=== PATIENT | male | born 1935 | race Caucasian/White ===

== ENCOUNTER → 2017-02-09 | Outpatient (CLI) | payer OTHER ==
[~2017-02-09] MED LIST: ASPI-496 PO; CAND32TA2; CARV3.122 PO; CARV6.252 PO; LISI-167 PO; LISI-170 PO; REGADENOSON 0.4 MG/5 ML SYRINGE ONE; SIMV40TA3 PO; amlodipine
== END | disposition home or self-care (01) ==
LOC: CFH 12:01
PROVIDERS: ATTEND Nurse Practitioner Family
DX: I25.10 Atherosclerotic heart disease of native coronary artery without angina pectoris (principal)
CPT/HCPCS: 78452; 93017; A9502; J2785

== ENCOUNTER 2017-02-10 06:37 | Inpatient (IN) | payer OTHER, MEDICARE ==
[~2017-02-10] VITALS: Ht 180.3 cm; Wt 102.2 kg
[~2017-02-10 06:37] MED LIST changes: -ASPI-496 PO; +BACITRACIN 50,000 UNIT ONE; +BUPIVACAINE/PF 0.25% ONE; +BUPIVACAINE/PF-EPI 0.5% 1:200K ONE; -CARV3.122 PO; -CARV6.252 PO; -LISI-167 PO; -LISI-170 PO; -REGADENOSON 0.4 MG/5 ML SYRINGE ONE; +THROMBIN 5,000 UNIT VIAL TP ONE
[2017-02-10 15:34] VITALS: BP 138/77
[2017-02-10] MEDS ORDERED: LACTATED RINGERS 1,000 ML IV SCH (15:37)
[2017-02-10] MEDS ORDERED: ASPI-496 PO (16:26)
[2017-02-10] MEDS ORDERED: LISI-167 PO (16:26)
[2017-02-10] MEDS ORDERED: LISI-170 PO (16:26)
[2017-02-10] MEDS ORDERED: CARV3.122 PO (16:26)
[2017-02-10] MEDS ORDERED: CARV6.252 PO (16:26)
[2017-02-10] MEDS ORDERED: FENTANYL PF 250 MCG/5ML ONE (16:44)
[2017-02-10] MEDS ORDERED: ONDANSETRON 2MG/ML, 2ML ONE (17:02)
[2017-02-10] MEDS ORDERED: CEFAZOLIN 1,000 MG ONE (17:02)
[2017-02-10] MEDS ORDERED: PROPOFOL 10 MG/ML, 20ML ONE (17:02)
[2017-02-10] MEDS ORDERED: ROCURONIUM 10 MG/ML ONE (17:02)
[2017-02-10] MEDS ORDERED: PROPOFOL 10 MG/ML, 50ML ONE (17:02)
[2017-02-10] MEDS ORDERED: SUCCINYLCHOLINE 20 MG/ML, 10ML ONE (17:02)
[2017-02-10] MEDS ORDERED: ONDANSETRON 2MG/ML, 2ML IVPush PRN ×2 (18:00→19:00)
[2017-02-10] MEDS ORDERED: FENTANYL PF 100 MCG/2ML IV PRN (18:00)
[2017-02-10] MEDS ORDERED: METOPROLOL 1 MG/ML, 5ML IV PRN (18:00)
[2017-02-10] MEDS ORDERED: OXYcodone 5 MG/5 ML ORAL.SOL UDC PO PRN (18:00)
[2017-02-10] MEDS ORDERED: LABETALOL 5MG/ML, 20ML IV PRN (18:00)
[2017-02-10] MEDS ORDERED: hydrALAzine 20 MG/ML, 1ML IV PRN (18:00)
[2017-02-10] MEDS ORDERED: HYDROmorphone 1 MG/ML, 1ML IV PRN (18:00)
[2017-02-10] MEDS ORDERED: FENTANYL PF 100 MCG/2ML ONE ×2 (18:07→18:43)
[2017-02-10] MEDS ORDERED: ACETAMINOPHEN 650 MG/20.3 ML UDC ONE (18:43)
[2017-02-10] MEDS ORDERED: OXYcodone 5 MG/5 ML ORAL.SOL UDC ONE (18:43)
[2017-02-10] MEDS ORDERED: morphine SULFATE 10 MG/ML, 1ML IVPush PRN (19:00)
[2017-02-10] MEDS ORDERED: HYDROcodone/APAP 10/325 MG TABLET PO PRN (19:00)
[2017-02-10] MEDS ORDERED: ACETAMINOPHEN 325 MG TABLET PO PRN (19:00)
[2017-02-10] MEDS ORDERED: PROMETHAZINE 25 MG/ML, 1ML IM PRN (19:00)
[2017-02-10] MEDS ORDERED: PHARMACY MAY ADJ FOR RENAL FX MC PRN (19:00)
[2017-02-10] MEDS ORDERED: CYCLOBENZAPRINE 10 MG TABLET PO PRN (19:00)
[2017-02-10] MEDS ORDERED: HYDROcodone/APAP 5/325 TABLET PO PRN (19:00)
[2017-02-10] MEDS ORDERED: BISACODYL 10 MG SUPP PR PRN (19:00)
[2017-02-10] MEDS ORDERED: DIPHENHYDRAMINE 50 MG/ML, 1ML IVPush PRN (19:00)
[2017-02-10] MEDS: LISINOPRIL 20 MG TABLET PO SCH (22:14)
[2017-02-10] MEDS: D5%-0.9% NACL+KCL 20MEQ 1,000 ML IV SCH (22:14)
[2017-02-10] MEDS: CARVEDILOL 6.25 MG TABLET PO SCH (22:15)
[2017-02-10] MEDS: SODIUM CHLORIDE FLUSH 10ML SYR IVF SCH (22:16)
[2017-02-10] MEDS: OXYcodone/APAP 5/325MG TABLET PO PRN (22:56)
[2017-02-11 00:27] VITALS: BP 123/65
[2017-02-11] MEDS: CEFAZOLIN PMX 1GM/50ML 50 ML IVPB SCH ×2 (00:35→08:37)
[2017-02-11 03:40] VITALS: BP 139/72
[2017-02-11] MEDS: OXYcodone/APAP 5/325MG TABLET PO PRN ×4 (03:51→19:59)
[2017-02-11 07:56] VITALS: BP 123/60
[2017-02-11] MEDS: CARVEDILOL 3.125 MG TABLET PO SCH (08:37)
[2017-02-11] MEDS: SODIUM CHLORIDE FLUSH 10ML SYR IVF SCH ×2 (08:38→19:59)
[2017-02-11] MEDS: LISINOPRIL 10 MG TABLET PO SCH (08:38)
[2017-02-11] MEDS: D5%-0.9% NACL+KCL 20MEQ 1,000 ML IV SCH ×2 (09:20→22:40)
[2017-02-11] MEDS: SENNA/DOCUSATE TABLET PO PRN (11:08)
[2017-02-11 13:34] VITALS: BP 109/54
[2017-02-11 18:57] VITALS: BP 104/65
[2017-02-11] MEDS: CARVEDILOL 6.25 MG TABLET PO SCH (19:59)
[2017-02-11] MEDS: LISINOPRIL 20 MG TABLET PO SCH (19:59)
[2017-02-12 02:14] VITALS: BP 133/69
[2017-02-12 07:20] VITALS: BP 121/71
[2017-02-12] MEDS: CARVEDILOL 3.125 MG TABLET PO SCH (07:58)
[2017-02-12] MEDS: OXYcodone/APAP 5/325MG TABLET PO PRN ×2 (07:59→15:55)
[2017-02-12] MEDS: SODIUM CHLORIDE FLUSH 10ML SYR IVF SCH ×2 (07:59→20:17)
[2017-02-12 08:00] VITALS: BP 117/60
[2017-02-12] MEDS: LISINOPRIL 10 MG TABLET PO SCH (09:00)
[2017-02-12] MEDS: TAMSULOSIN 0.4 MG CAP.ER.24H PO SCH (10:42)
[2017-02-12] MEDS: SENNA/DOCUSATE TABLET PO PRN (10:42)
[2017-02-12 10:54] VITALS: BP 96/42
[2017-02-12] MEDS: D5%-0.9% NACL+KCL 20MEQ 1,000 ML IV SCH (12:00)
[2017-02-12 12:51] VITALS: BP 106/70
[2017-02-12 19:47] VITALS: BP 105/55
[2017-02-12] MEDS: CARVEDILOL 6.25 MG TABLET PO SCH (20:18)
[2017-02-12] MEDS: LISINOPRIL 20 MG TABLET PO SCH (20:18)
[2017-02-13] MEDS: D5%-0.9% NACL+KCL 20MEQ 1,000 ML IV SCH ×2 (01:20→14:40)
[2017-02-13 02:57] VITALS: BP 113/59
[2017-02-13 07:04] VITALS: BP 102/56
[2017-02-13] MEDS: TAMSULOSIN 0.4 MG CAP.ER.24H PO SCH (08:54)
[2017-02-13] MEDS: OXYcodone/APAP 5/325MG TABLET PO PRN (08:56)
[2017-02-13] MEDS: LISINOPRIL 10 MG TABLET PO SCH (09:00)
[2017-02-13] MEDS: CARVEDILOL 3.125 MG TABLET PO SCH (09:00)
[2017-02-13] MEDS: SODIUM CHLORIDE FLUSH 10ML SYR IVF SCH ×2 (09:00→20:41)
[2017-02-13 12:54] VITALS: BP 96/61
[2017-02-13 17:06] VITALS: BP 137/55
[2017-02-13 19:02] VITALS: BP 113/61
[2017-02-13] MEDS: CARVEDILOL 6.25 MG TABLET PO SCH ×2 (20:41→20:44)
[2017-02-13] MEDS: LISINOPRIL 20 MG TABLET PO SCH ×2 (20:41→20:44)
[2017-02-14 02:23] VITALS: BP 111/60
[2017-02-14] MEDS: D5%-0.9% NACL+KCL 20MEQ 1,000 ML IV SCH ×2 (04:00→17:20)
[2017-02-14 07:43] VITALS: BP 116/65
[2017-02-14] MEDS: CARVEDILOL 3.125 MG TABLET PO SCH (09:00)
[2017-02-14] MEDS: LISINOPRIL 10 MG TABLET PO SCH (09:00)
[2017-02-14] MEDS: OXYcodone/APAP 5/325MG TABLET PO PRN (09:20)
[2017-02-14] MEDS: SENNA/DOCUSATE TABLET PO PRN (09:20)
[2017-02-14] MEDS: TAMSULOSIN 0.4 MG CAP.ER.24H PO SCH (09:21)
[2017-02-14] MEDS: SODIUM CHLORIDE FLUSH 10ML SYR IVF SCH ×2 (09:23→20:00)
[2017-02-14] MEDS ORDERED: TAMS-11 PO (10:40)
[2017-02-14] MEDS ORDERED: OXYC-302 PO (10:40)
[2017-02-14] MEDS ORDERED: CYCL-259 PO (10:40)
[2017-02-14] MEDS ORDERED: SULF1TAB24 PO (10:40)
[2017-02-14 13:58] VITALS: BP 100/62
[2017-02-14] MEDS ORDERED: PHARMACY INSTRUCTION MC SCH (14:16)
[2017-02-14 14:45] LABS: BLOOD UREA NITROGEN 19 mg/dL (7-18)
[2017-02-14] MEDS: ENOXAPARIN 100 MG/ML SQ SCH (15:15)
[2017-02-14 19:06] VITALS: BP 134/71
[2017-02-14] MEDS: CARVEDILOL 6.25 MG TABLET PO SCH (19:59)
[2017-02-14] MEDS: LISINOPRIL 20 MG TABLET PO SCH (19:59)
[2017-02-15 01:26] VITALS: BP 119/66
[2017-02-15] MEDS: ENOXAPARIN 100 MG/ML SQ SCH (03:30)
[2017-02-15 08:31] VITALS: BP 112/68
[2017-02-15] MEDS: SODIUM CHLORIDE FLUSH 10ML SYR IVF SCH (08:32)
[2017-02-15] MEDS: LISINOPRIL 10 MG TABLET PO SCH (08:32)
[2017-02-15] MEDS: CARVEDILOL 3.125 MG TABLET PO SCH (08:32)
[2017-02-15] MEDS: TAMSULOSIN 0.4 MG CAP.ER.24H PO SCH (08:32)
[2017-02-15] MEDS ORDERED: POLYETHYLENE GLYCOL 17 GM PACKET PO SCH (09:00)
[2017-02-15] MEDS ORDERED: DABI150C PO (12:32)
[2017-02-15] MEDS ORDERED: DABIGATRAN 150 MG CAPSULE PO ONE (13:00)
== END 2017-02-15 14:40 | disposition home health service (06) | DRG 519 ==
LOC: ORIP 14:55 → 4NOR 19:55 → DCLOUNGE 02-15 14:15
PROVIDERS: ADMIT Neurological Surgery; ATTEND Family Medicine
PROC: 01NB0ZZ Release Lumbar Nerve, Open Approach (ICD-10-PCS; 2017-02-10)
PROC: 4A11X4G Monitoring of Peripheral Nervous Electrical Activity, Intraoperative, External Approach (ICD-10-PCS; 2017-02-10)
PROC: 01NR0ZZ Release Sacral Nerve, Open Approach (ICD-10-PCS; 2017-02-10)
PROC: 00BT0ZZ Excision of Spinal Meninges, Open Approach (ICD-10-PCS; principal; 2017-02-10 19:30)
DX: M48.06 Spinal stenosis, lumbar region (principal); I82.431 Acute embolism and thrombosis of right popliteal vein; I82.441 Acute embolism and thrombosis of right tibial vein; E88.2 Lipomatosis, not elsewhere classified; M54.16 Radiculopathy, lumbar region; I25.10 Atherosclerotic heart disease of native coronary artery without angina pectoris; Z96.653 Presence of artificial knee joint, bilateral; Z96.642 Presence of left artificial hip joint; G89.29 Other chronic pain; N40.1 Benign prostatic hyperplasia with lower urinary tract symptoms; R33.8 Other retention of urine; Z95.1 Presence of aortocoronary bypass graft; Z87.891 Personal history of nicotine dependence; Z90.49 Acquired absence of other specified parts of digestive tract; Z98.52 Vasectomy status; Z79.899 Other long term (current) drug therapy; Z88.8 Allergy status to other drugs, medicaments and biological substances; Z79.82 Long term (current) use of aspirin
CPT/HCPCS: 36415; 72100; 80048; 93970; J0690; J1650; J2405; J2704; J3010; J3490; J0330; J3480; J7120

== ENCOUNTER 2018-11-01 08:00 | Inpatient (IN) | payer OTHER, MEDICARE ==
[~2018-11-01] VITALS: Ht 182.9 cm; Wt 99.3 kg
[~2018-11-01 08:00] MED LIST changes: +ASPI-496 PO; -BACITRACIN 50,000 UNIT ONE; -BUPIVACAINE/PF 0.25% ONE; -BUPIVACAINE/PF-EPI 0.5% 1:200K ONE; +CAND32TA19; -CAND32TA2; +CARV3.122 PO; +CARV6.252 PO; +CYCL-259 PO; +DABI150C PO; +LISI-167 PO; +LISI-170 PO; +OXYC-302 PO; +SULF1TAB24 PO; +TAMS-11 PO; -THROMBIN 5,000 UNIT VIAL TP ONE
[2018-11-01] MEDS ORDERED: CEFAZOLIN PMX 1GM/50ML 50 ML ONE (08:25)
[2018-11-01] MEDS ORDERED: CEFAZOLIN 1,000 MG ONE (08:26)
[2018-11-01] MEDS ORDERED: SODIUM CHLORIDE 0.9% 1,000 ML IV SCH (08:29)
[2018-11-01] MEDS ORDERED: CEFAZOLIN PMX 1GM/50ML 50 ML IVPB ONE (08:30)
[2018-11-01 08:35] VITALS: BP 126/65
[2018-11-01] MEDS ORDERED: FINA5TAB4 PO (08:47)
[2018-11-01] MEDS ORDERED: LATA2.5D3 EACHEYE (08:47)
[2018-11-01] MEDS ORDERED: TAMS0.4C2 PO (08:47)
[2018-11-01] MEDS ORDERED: LATA7.5D EACHEYE (08:47)
[2018-11-01] MEDS ORDERED: CARV3.122 PO (08:47)
[2018-11-01] MEDS ORDERED: ATOR20TA37 PO (08:47)
[2018-11-01] MEDS ORDERED: AMOX-291 PO (08:47)
[2018-11-01 08:58] LABS: BASOPHILS # (AUTO) 0.03 x10^3/uL (0-0.1); BASOPHILS % (AUTO) 1 % (0-1); EOSINOPHILS % (AUTO) 3 % (1-7); LYMPHOCYTES # (AUTO) 1.46 x10^3/uL (1-3.4); LYMPHOCYTES % (AUTO) 22 % (22-44); MD NO; MEAN CORPUSCULAR HGB CONC 32.7 g/dL (33.2-36.2); MEAN CORPUSCULAR VOLUME 91.7 fL (81-97); MEAN PLATELET VOLUME 10.2 fL (7.4-10.4); MONOCYTES # (AUTO) 0.52 x10^3/uL (0.2-0.8); MONOCYTES % (AUTO) 8 % (2-9); NEUTROPHILS # (AUTO) 4.42 x10^3/uL (1.8-6.8); NEUTROPHILS % (AUTO) 67 % (42-75); PLATELET COUNT 202 x10^3/uL (130-400); RED BLOOD COUNT 4.47 x10^6/uL (4.38-5.82); RED CELL DISTRIBUTION WIDTH 16.5 % (9.4-14.8)
[2018-11-01 09:07] LABS: ANION GAP 8 mmol/L (5-15); CHLORIDE 112 mmol/L (98-107); CREATININE 1.06 mg/dL (0.7-1.3)
[2018-11-01] MEDS ORDERED: MIDAZOLAM 1 MG/ML, 2ML ONE (09:34)
[2018-11-01] MEDS ORDERED: LIDOCAINE 1%, 20ML ONE (09:34)
[2018-11-01] MEDS ORDERED: FENTANYL PF 100 MCG/2ML ONE (09:34)
[2018-11-01] MEDS ORDERED: Hold all anticoagulants for 24 hours MC PRN (11:00)
[2018-11-01] MEDS ORDERED: ACETAMINOPHEN 325 MG TABLET PO PRN (11:00)
[2018-11-01] MEDS ORDERED: ZOLPIDEM 5MG TABLET PO PRN (11:00)
[2018-11-01] MEDS ORDERED: [UNRECOGNIZED DRUG - REMARK] MC PRN (12:00)
[2018-11-01 14:00] VITALS: BP 117/57
[2018-11-01] MEDS: AMOXICILLIN 500 MG CAPSULE PO SCH ×2 (16:08→21:00)
[2018-11-01] MEDS: CEFAZOLIN PMX 1GM/50ML 50 ML IVPB SCH (17:37)
[2018-11-01 20:00] VITALS: BP 179/57
[2018-11-01] MEDS ORDERED: LATANOPROST EACHEYE SCH (21:00)
[2018-11-01] MEDS ORDERED: LATANOPROST OPHTH 0.005%, 2.5ML EACHEYE SCH (21:00)
[2018-11-01] MEDS ORDERED: ATORVASTATIN 20 MG TABLET PO SCH (21:00)
[2018-11-01] MEDS: SODIUM CHLORIDE FLUSH 10ML SYR IVF SCH (21:04)
[2018-11-01] MEDS ORDERED: TAMSULOSIN 0.4 MG CAP.ER.24H PO SCH (21:30)
[2018-11-01] MEDS ORDERED: FINASTERIDE 5 MG TABLET PO SCH (21:30)
[2018-11-01] MEDS ORDERED: CARVEDILOL 3.125 MG TABLET PO SCH (21:30)
[2018-11-02 01:00] VITALS: BP 130/57
[2018-11-02] MEDS: CEFAZOLIN PMX 1GM/50ML 50 ML IVPB SCH (01:10)
[2018-11-02] MEDS ORDERED: CARVEDILOL 3.125 MG TABLET PO SCH (06:00)
[2018-11-02] MEDS: AMOXICILLIN 500 MG CAPSULE PO SCH (07:39)
[2018-11-02] MEDS: SODIUM CHLORIDE FLUSH 10ML SYR IVF SCH (07:39)
[2018-11-02 08:00] VITALS: BP 107/53
[2018-11-02] MEDS ORDERED: AMOXICILLIN 500 MG CAPSULE PO SCH (09:00)
[2018-11-02] MEDS ORDERED: FINASTERIDE 5 MG TABLET PO SCH (09:00)
[2018-11-02] MEDS ORDERED: CARVEDILOL PO SCH (09:00)
[2018-11-02] MEDS ORDERED: TAMSULOSIN 0.4 MG CAP.ER.24H PO SCH (09:00)
== END 2018-11-02 10:45 | disposition home or self-care (01) | DRG 244 ==
LOC: CACL 08:00 → ORIP 10:46 → CSU 10:57 → DCLOUNGE 11-02 10:30
PROVIDERS: ADMIT Internal Medicine Cardiovascular Disease; ATTEND Internal Medicine Cardiovascular Disease
PROC: 0JH606Z Insertion of Pacemaker, Dual Chamber into Chest Subcutaneous Tissue and Fascia, Open Approach (ICD-10-PCS; principal; 2018-11-01)
PROC: 02H63JZ Insertion of Pacemaker Lead into Right Atrium, Percutaneous Approach (ICD-10-PCS; 2018-11-01)
PROC: 02HK3JZ Insertion of Pacemaker Lead into Right Ventricle, Percutaneous Approach (ICD-10-PCS; 2018-11-01)
DX: I44.30 Unspecified atrioventricular block (principal); N40.0 Benign prostatic hyperplasia without lower urinary tract symptoms; I10 Essential (primary) hypertension; E78.5 Hyperlipidemia, unspecified; R00.1 Bradycardia, unspecified; Z87.891 Personal history of nicotine dependence; Z82.49 Family history of ischemic heart disease and other diseases of the circulatory system; Z79.82 Long term (current) use of aspirin; Z79.899 Other long term (current) drug therapy; I25.10 Atherosclerotic heart disease of native coronary artery without angina pectoris; I49.5 Sick sinus syndrome
CPT/HCPCS: 33208; 36415; 71045; 71046; 80048; 85025; 87081; 93880; 99156; 99157; C1779; C1785; C1892; G0378; J0690; J2250; J3010; J3490

== ENCOUNTER 2020-02-12 18:00 | Inpatient (IN) | payer OTHER, MEDICARE ==
[~2020-02-12] VITALS: Ht 180.3 cm; Wt 108.6 kg
[~2020-02-12 18:00] MED LIST changes: +AMOX-291 PO; +ATOR20TA37 PO; +FINA5TAB4 PO; +LATA2.5D3 EACHEYE; +LATA7.5D EACHEYE; +SIMV40TA20 PO; -SIMV40TA3 PO; +TAMS0.4C2 PO
--- NOTE | 2020-02-12 18:32 | NUR ---
Patient BIB air ambulance from [facility] in [place]. Patient xfer to [facility] due to the need for a cholecysectomy and patient is on Eloquis. Patient presented to their hospital with RUQ and epigastric pain along with abd distention x3 days. Patient was constipated and febrile. Currently patient is in NAD. Denies abd pain or other associated symptoms. Patient afebrile.
[2020-02-12] MEDS ORDERED: APIX5TAB PO (19:15)
[2020-02-12] MEDS ORDERED: SODIUM CHLORIDE FLUSH 10ML SYR IVF ONE (19:30)
[2020-02-12 19:46] LABS: MEAN CORPUSCULAR HEMOGLOBIN 28.4 pg (27.5-34.5); MEAN CORPUSCULAR HGB CONC 32.5 g/dL (33.2-36.2); MEAN CORPUSCULAR VOLUME 87.4 fL (81-97); MEAN PLATELET VOLUME 10.3 fL (7.4-10.4); PLATELET COUNT 167 x10^3/uL (130-400); RED BLOOD COUNT 4.99 x10^6/uL (4.38-5.82)
[2020-02-12 19:56] LABS: ALANINE AMINOTRANSFERASE 58 U/L (12-78); ALBUMIN 2.5 g/dL (3.4-5.0); ANION GAP 4 mmol/L (5-15); CALCIUM 8.6 mg/dL (8.5-10.1); CHLORIDE 108 mmol/L (98-107); CREATININE 1.91 mg/dL (0.7-1.3)
[2020-02-12 19:59] LABS: ALKALINE PHOSPHATASE 177 U/L (45-117); BILIRUBIN,TOTAL 1.4 mg/dL (0.2-1.0); TOTAL PROTEIN 6.4 g/dL (6.4-8.2)
[2020-02-12 20:08] LABS: MD YES
[2020-02-12 20:11] LABS: BAND#(MANUAL) 3.55 x10^3/uL; BANDS%(MANUAL) 17 % (0-7); EOS#(MANUAL) 0.21 x10^3/uL (0.0-0.4); EOS% (MANUAL) 1 % (1-7); LYMPH#(MANUAL) 0.42 x10^3/uL (1-3.4); LYMPHS% (MANUAL) 2 % (22-44); MONOS#(MANUAL) 0.63 x10^3/uL (0.3-2.7); MONOS% (MANUAL) 3 % (2-9); SEG#(MANUAL) 16.09 x10^3/uL (1.8-6.8); SEGS% (MANUAL) 77 % (42-75)
[2020-02-12 20:12] LABS: <PLATELET ESTIMATE> ADEQUATE; ANISOCYTOSIS 1+; LARGE PLATELETS 1+; OVALOCYTES 1+
--- NOTE | 2020-02-12 20:26 | NUR ---
Report given to SHAN Grey. Patient to be transfered to room 457.
[2020-02-12] MEDS ORDERED: LATANOPROST EACHEYE SCH (21:00)
[2020-02-12] MEDS ORDERED: ONDANSETRON 2MG/ML, 2ML IVPush PRN (21:30)
[2020-02-12 22:00] VITALS: BP 130/65
[2020-02-12 22:46] LABS: INTERNATIONAL NORMALIZED RATIO 1.07 (0.93-1.1); PROTHROMBIN TIME 11.4 Seconds (9.6-11.5)
[2020-02-12] MEDS: SODIUM CHLORIDE 0.9% 1,000 ML IV SCH (22:47)
[2020-02-12] MEDS: ATORVASTATIN 20 MG TABLET PO SCH (22:47)
[2020-02-12] MEDS: PIPERACILLIN/TAZO/PMX 2.25GM 50 ML IV SCH (22:47)
[2020-02-12] MEDS: LATANOPROST OPHTH 0.005%, 2.5ML EACHEYE SCH (22:47)
[2020-02-13 02:18] VITALS: BP 135/67
[2020-02-13 03:10] LABS: MICROSCOPIC AUTO
[2020-02-13] MEDS: PIPERACILLIN/TAZO/PMX 2.25GM 50 ML IV SCH ×4 (04:44→22:31)
[2020-02-13 05:30] LABS: MEAN CORPUSCULAR HEMOGLOBIN 28.1 pg (27.5-34.5); MEAN PLATELET VOLUME 10.4 fL (7.4-10.4); PLATELET COUNT 161 x10^3/uL (130-400); RED BLOOD COUNT 5.02 x10^6/uL (4.38-5.82); RED CELL DISTRIBUTION WIDTH 18.3 % (9.4-14.8)
[2020-02-13 05:40] LABS: CALCIUM 8.5 mg/dL (8.5-10.1); CHLORIDE 108 mmol/L (98-107)
[2020-02-13 05:44] LABS: ANION GAP 7 mmol/L (5-15); CREATININE 1.63 mg/dL (0.7-1.3)
[2020-02-13 05:56] LABS: MD YES
[2020-02-13 05:58] LABS: <PLATELET ESTIMATE> ADEQUATE; ANISOCYTOSIS 1+; BAND#(MANUAL) 0.79 x10^3/uL; BANDS%(MANUAL) 4 % (0-7); LYMPH#(MANUAL) 0.39 x10^3/uL (1-3.4); LYMPHS% (MANUAL) 2 % (22-44); METAMYELOCYTES% (MANUAL) 1 % (0-1); MONOS#(MANUAL) 1.38 x10^3/uL (0.3-2.7); MONOS% (MANUAL) 7 % (2-9); SEG#(MANUAL) 16.94 x10^3/uL (1.8-6.8); SEGS% (MANUAL) 86 % (42-75)
[2020-02-13 05:59] LABS: LARGE PLATELETS 1+
[2020-02-13 07:32] VITALS: BP 117/63
[2020-02-13] MEDS: FINASTERIDE 5 MG TABLET PO SCH (09:02)
[2020-02-13] MEDS: TAMSULOSIN 0.4 MG CAP.ER.24H PO SCH (09:03)
[2020-02-13] MEDS: SODIUM CHLORIDE 0.9% 1,000 ML IV SCH (09:06)
[2020-02-13] MEDS: CARVEDILOL 3.125 MG TABLET PO SCH (09:06)
[2020-02-13] MEDS ORDERED: DORZ1DRO7 EACHEYE (09:58)
[2020-02-13] MEDS ORDERED: BRIN8DRO EACHEYE (10:02)
[2020-02-13] MEDS ORDERED: HEPARIN 5,000 UNITS/ML, 1ML SQ SCH (12:30)
[2020-02-13] MEDS ORDERED: CHLORHEXIDINE 15 ML UDC MM STA (13:00)
[2020-02-13] MEDS ORDERED: CHLORHEXIDINE 15 ML UDC ONE (13:01)
[2020-02-13] MEDS ORDERED: BUPIVACAINE/PF-EPI 0.5% 1:200K ONE (13:13)
[2020-02-13] MEDS ORDERED: FENTANYL PF 250 MCG/5ML ONE (13:16)
[2020-02-13] MEDS ORDERED: MIDAZOLAM 1 MG/ML, 5ML ONE (13:16)
[2020-02-13] MEDS ORDERED: ONDANSETRON 2MG/ML, 2ML ONE (13:36)
[2020-02-13] MEDS ORDERED: SUCCINYLCHOLINE 20 MG/ML, 10ML ONE (13:36)
[2020-02-13] MEDS ORDERED: ROCURONIUM 10 MG/ML,10ML ONE (13:36)
[2020-02-13] MEDS ORDERED: CEFAZOLIN 1,000 MG ONE (13:36)
[2020-02-13] MEDS ORDERED: PROPOFOL 10 MG/ML, 20ML ONE (13:36)
[2020-02-13] MEDS ORDERED: DEXAMETHASONE 4 MG/ML, 1ML ONE (13:36)
[2020-02-13] MEDS ORDERED: ACETAMINOPHEN 650 MG/20.3 ML UDC ONE (15:09)
[2020-02-13] MEDS ORDERED: FENTANYL PF 100 MCG/2ML ONE (15:10)
[2020-02-13] MEDS ORDERED: OXYcodone 5 MG/5 ML ORAL.SOL UDC ONE ×2 (15:10→15:50)
[2020-02-13] MEDS: FENTANYL PF 100 MCG/2ML IV PRN ×3 (15:13→15:25)
[2020-02-13] MEDS: OXYcodone 5 MG/5 ML ORAL.SOL UDC PO PRN ×2 (15:15→16:02)
[2020-02-13] MEDS: ACETAMINOPHEN 325 MG TABLET PO PRN ×2 (15:16→21:54)
[2020-02-13] MEDS ORDERED: hydrALAzine 20 MG/ML, 1ML IV PRN (15:30)
[2020-02-13] MEDS ORDERED: ONDANSETRON 2MG/ML, 2ML IVPush PRN (15:30)
[2020-02-13] MEDS ORDERED: LABETALOL 5MG/ML, 20ML IV PRN (15:30)
[2020-02-13] MEDS ORDERED: HYDROmorphone 1 MG/ML, 1ML INJ ONE (15:46)
[2020-02-13] MEDS: HYDROmorphone 1 MG/ML, 1ML INJ IVPush PRN ×2 (15:48→15:54)
[2020-02-13] MEDS: DORZOLAMIDE OPHTH 2%, 10ML EACHEYE SCH ×2 (17:23→21:06)
[2020-02-13 19:38] VITALS: BP 103/65
[2020-02-13] MEDS: LATANOPROST OPHTH 0.005%, 2.5ML EACHEYE SCH (21:06)
[2020-02-13] MEDS: ATORVASTATIN 20 MG TABLET PO SCH (21:07)
[2020-02-13] MEDS: morphine SULFATE 10 MG/ML, 1ML IVPush PRN (22:53)
[2020-02-13 23:49] VITALS: BP 104/65
[2020-02-14] MEDS: SODIUM CHLORIDE 0.9% 1,000 ML IV SCH ×3 (00:25→20:30)
[2020-02-14] MEDS: morphine SULFATE 10 MG/ML, 1ML IVPush PRN ×3 (03:45→12:59)
[2020-02-14 03:47] VITALS: BP 112/66
[2020-02-14] MEDS: PIPERACILLIN/TAZO/PMX 2.25GM 50 ML IV SCH ×4 (04:21→22:33)
[2020-02-14 04:43] LABS: MEAN CORPUSCULAR HEMOGLOBIN 27.8 pg (27.5-34.5); MEAN CORPUSCULAR HGB CONC 31.6 g/dL (33.2-36.2); MEAN CORPUSCULAR VOLUME 88.2 fL (81-97); MEAN PLATELET VOLUME 10.2 fL (7.4-10.4); PLATELET COUNT 161 x10^3/uL (130-400); RED CELL DISTRIBUTION WIDTH 18.1 % (9.4-14.8)
[2020-02-14 04:55] LABS: ANION GAP 6 mmol/L (5-15); CALCIUM 7.6 mg/dL (8.5-10.1); CHLORIDE 108 mmol/L (98-107); CREATININE 1.63 mg/dL (0.7-1.3)
[2020-02-14 05:17] LABS: MD YES
[2020-02-14 05:22] LABS: ANISOCYTOSIS 1+; BAND#(MANUAL) 0.33 x10^3/uL; BANDS%(MANUAL) 2 % (0-7); LYMPHS% (MANUAL) 8 % (22-44); METAMYELOCYTES# (MANUAL) 0.16 x10^3/uL (0-0); METAMYELOCYTES% (MANUAL) 1 % (0-1); MONOS#(MANUAL) 1.79 x10^3/uL (0.3-2.7); MONOS% (MANUAL) 11 % (2-9); OVALOCYTES 1+; POLYCHROMASIA 1+; REACTIVE LYMPHS # (MANUAL) 0.33 x10^3/uL (0-0); REACTIVE LYMPHS % (MANUAL) 2 % (0-0); SEG#(MANUAL) 12.39 x10^3/uL (1.8-6.8); SEGS% (MANUAL) 76 % (42-75)
[2020-02-14 05:23] LABS: <PLATELET ESTIMATE> ADEQUATE; LARGE PLATELETS 1+
[2020-02-14 06:50] LABS: ALBUMIN 1.9 g/dL (3.4-5.0)
[2020-02-14 06:52] LABS: ALANINE AMINOTRANSFERASE 62 U/L (12-78); BILIRUBIN,TOTAL 0.9 mg/dL (0.2-1.0); TOTAL PROTEIN 5.7 g/dL (6.4-8.2)
[2020-02-14 06:58] LABS: ALKALINE PHOSPHATASE 144 U/L (45-117)
[2020-02-14 07:08] VITALS: BP 121/69
[2020-02-14] MEDS: FINASTERIDE 5 MG TABLET PO SCH (07:17)
[2020-02-14] MEDS: DORZOLAMIDE OPHTH 2%, 10ML EACHEYE SCH ×3 (07:17→22:32)
[2020-02-14] MEDS: TAMSULOSIN 0.4 MG CAP.ER.24H PO SCH (07:17)
[2020-02-14] MEDS: CARVEDILOL 3.125 MG TABLET PO SCH (07:17)
[2020-02-14 12:19] VITALS: BP 117/61
[2020-02-14] MEDS: ACETAMINOPHEN 325 MG TABLET PO PRN ×2 (17:03→22:41)
[2020-02-14 19:45] VITALS: BP 116/67
[2020-02-14] MEDS: LATANOPROST OPHTH 0.005%, 2.5ML EACHEYE SCH (22:32)
[2020-02-14] MEDS: ATORVASTATIN 20 MG TABLET PO SCH (22:32)
[2020-02-14] MEDS: OXYcodone IR 5MG TABLET PO PRN (22:33)
[2020-02-15 01:08] VITALS: BP 125/61
[2020-02-15] MEDS: PIPERACILLIN/TAZO/PMX 2.25GM 50 ML IV SCH ×4 (04:34→23:38)
[2020-02-15 05:29] LABS: ANION GAP 7 mmol/L (5-15); CALCIUM 7.7 mg/dL (8.5-10.1); CHLORIDE 108 mmol/L (98-107); CREATININE 1.42 mg/dL (0.7-1.3)
[2020-02-15 05:33] LABS: HCT (SEDRATE) 40.4 % (39.2-51.8)
[2020-02-15 05:35] LABS: BASOPHILS # (AUTO) 0.05 x10^3/uL (0-0.1); BASOPHILS % (AUTO) 0 % (0-1); EOSINOPHILS % (AUTO) 2 % (1-7); LYMPHOCYTES # (AUTO) 1.08 x10^3/uL (1-3.4); LYMPHOCYTES % (AUTO) 9 % (22-44); MD NO; MEAN CORPUSCULAR HEMOGLOBIN 27.9 pg (27.5-34.5); MEAN CORPUSCULAR HGB CONC 31.6 g/dL (33.2-36.2); MEAN CORPUSCULAR VOLUME 88.1 fL (81-97); MEAN PLATELET VOLUME 10.8 fL (7.4-10.4); MONOCYTES # (AUTO) 1.02 x10^3/uL (0.2-0.8); MONOCYTES % (AUTO) 8 % (2-9); NEUTROPHILS # (AUTO) 10.34 x10^3/uL (1.8-6.8); NEUTROPHILS % (AUTO) 82 % (42-75); PLATELET COUNT 173 x10^3/uL (130-400); RED BLOOD COUNT 4.57 x10^6/uL (4.38-5.82); RED CELL DISTRIBUTION WIDTH 18.6 % (9.4-14.8)
[2020-02-15] MEDS: SODIUM CHLORIDE 0.9% 1,000 ML IV SCH ×2 (06:30→16:00)
[2020-02-15] MEDS: FINASTERIDE 5 MG TABLET PO SCH (08:55)
[2020-02-15] MEDS: DORZOLAMIDE OPHTH 2%, 10ML EACHEYE SCH ×3 (08:55→21:22)
[2020-02-15] MEDS: TAMSULOSIN 0.4 MG CAP.ER.24H PO SCH (08:56)
[2020-02-15] MEDS: CARVEDILOL 3.125 MG TABLET PO SCH (08:56)
[2020-02-15] MEDS: ACETAMINOPHEN 325 MG TABLET PO PRN (11:55)
[2020-02-15] MEDS: OXYcodone IR 5MG TABLET PO PRN (11:56)
[2020-02-15 13:14] VITALS: BP 115/65
[2020-02-15] MEDS: morphine SULFATE 10 MG/ML, 1ML IVPush PRN (13:58)
[2020-02-15 20:25] VITALS: BP 142/79
[2020-02-15] MEDS: LATANOPROST OPHTH 0.005%, 2.5ML EACHEYE SCH (21:22)
[2020-02-15] MEDS: ATORVASTATIN 20 MG TABLET PO SCH (21:22)
[2020-02-16 00:19] VITALS: BP 126/76
[2020-02-16] MEDS: OXYcodone IR 5MG TABLET PO PRN ×3 (00:37→21:48)
[2020-02-16] MEDS: ACETAMINOPHEN 325 MG TABLET PO PRN ×3 (00:37→21:48)
[2020-02-16] MEDS: SODIUM CHLORIDE 0.9% 1,000 ML IV SCH ×2 (02:30→11:58)
[2020-02-16 05:01] LABS: MEAN CORPUSCULAR HEMOGLOBIN 28.2 pg (27.5-34.5); MEAN CORPUSCULAR HGB CONC 31.9 g/dL (33.2-36.2); MEAN CORPUSCULAR VOLUME 88.4 fL (81-97); MEAN PLATELET VOLUME 10.5 fL (7.4-10.4); PLATELET COUNT 200 x10^3/uL (130-400); RED BLOOD COUNT 4.58 x10^6/uL (4.38-5.82); RED CELL DISTRIBUTION WIDTH 18.6 % (9.4-14.8)
[2020-02-16 05:08] LABS: ANION GAP 6 mmol/L (5-15); CALCIUM 7.8 mg/dL (8.5-10.1); CHLORIDE 107 mmol/L (98-107); CREATININE 1.22 mg/dL (0.7-1.3)
[2020-02-16] MEDS: PIPERACILLIN/TAZO/PMX 2.25GM 50 ML IV SCH ×2 (05:32→11:04)
[2020-02-16 06:19] LABS: BASOPHILS # (AUTO) 0.05 x10^3/uL (0-0.1); BASOPHILS % (AUTO) 0 % (0-1); EOSINOPHILS # (AUTO) 0.16 x10^3/uL (0-0.4); EOSINOPHILS % (AUTO) 2 % (1-7); LYMPHOCYTES # (AUTO) 1.32 x10^3/uL (1-3.4); LYMPHOCYTES % (AUTO) 12 % (22-44); MD SCAN; MONOCYTES # (AUTO) 0.95 x10^3/uL (0.2-0.8); MONOCYTES % (AUTO) 9 % (2-9); NEUTROPHILS # (AUTO) 8.53 x10^3/uL (1.8-6.8); NEUTROPHILS % (AUTO) 78 % (42-75)
[2020-02-16] MEDS: FINASTERIDE 5 MG TABLET PO SCH (07:43)
[2020-02-16] MEDS: TAMSULOSIN 0.4 MG CAP.ER.24H PO SCH (07:43)
[2020-02-16] MEDS: CARVEDILOL 3.125 MG TABLET PO SCH (07:45)
[2020-02-16] MEDS: DORZOLAMIDE OPHTH 2%, 10ML EACHEYE SCH ×3 (07:46→21:42)
[2020-02-16 08:00] VITALS: BP 114/61
[2020-02-16 13:13] VITALS: BP 123/69
[2020-02-16] MEDS ORDERED: LEVOFLOXACIN 500 MG TABLET PO SCH (16:00)
[2020-02-16] MEDS ORDERED: MAGNESIUM HYDROXIDE 8%, 30ML UDC ONE (17:07)
[2020-02-16] MEDS ORDERED: MAGNESIUM HYDROXIDE 8%, 30ML UDC PO PRN (17:30)
[2020-02-16 19:40] VITALS: BP 113/70
[2020-02-16] MEDS: LATANOPROST OPHTH 0.005%, 2.5ML EACHEYE SCH (21:42)
[2020-02-16] MEDS: ATORVASTATIN 20 MG TABLET PO SCH (21:42)
[2020-02-16] MEDS: DOCUSATE 100 MG CAPSULE PO SCH (21:42)
[2020-02-16] MEDS: BISACODYL 10 MG SUPP PR PRN ×2 (21:42→22:03)
[2020-02-16 22:19] LABS: OCCULT BLOOD POSITIVE (NEGATIVE)
[2020-02-17 00:28] VITALS: BP 132/71
[2020-02-17] MEDS ORDERED: HEMORRHOIDAL OINT, 57 GM (PREP H) RC PRN (00:30)
[2020-02-17] MEDS: OXYcodone IR 5MG TABLET PO PRN ×2 (01:41→08:50)
[2020-02-17] MEDS: ACETAMINOPHEN 325 MG TABLET PO PRN ×2 (01:41→08:50)
[2020-02-17 05:24] LABS: BASOPHILS # (AUTO) 0.04 x10^3/uL (0-0.1); BASOPHILS % (AUTO) 0 % (0-1); EOSINOPHILS # (AUTO) 0.21 x10^3/uL (0-0.4); EOSINOPHILS % (AUTO) 2 % (1-7); LYMPHOCYTES # (AUTO) 1.34 x10^3/uL (1-3.4); LYMPHOCYTES % (AUTO) 13 % (22-44); MD NO; MEAN CORPUSCULAR HEMOGLOBIN 28.1 pg (27.5-34.5); MEAN CORPUSCULAR HGB CONC 32.3 g/dL (33.2-36.2); MONOCYTES # (AUTO) 1.05 x10^3/uL (0.2-0.8); MONOCYTES % (AUTO) 11 % (2-9); NEUTROPHILS # (AUTO) 7.35 x10^3/uL (1.8-6.8); NEUTROPHILS % (AUTO) 74 % (42-75); PLATELET COUNT 227 x10^3/uL (130-400); RED BLOOD COUNT 4.36 x10^6/uL (4.38-5.82); RED CELL DISTRIBUTION WIDTH 18.5 % (9.4-14.8)
[2020-02-17 05:26] LABS: ANION GAP 6 mmol/L (5-15); CALCIUM 7.6 mg/dL (8.5-10.1); CHLORIDE 109 mmol/L (98-107); CREATININE 1.23 mg/dL (0.7-1.3)
[2020-02-17 07:58] VITALS: BP 153/74
[2020-02-17] MEDS: DORZOLAMIDE OPHTH 2%, 10ML EACHEYE SCH (08:44)
[2020-02-17] MEDS: DOCUSATE 100 MG CAPSULE PO SCH (08:45)
[2020-02-17] MEDS: TAMSULOSIN 0.4 MG CAP.ER.24H PO SCH (08:45)
[2020-02-17] MEDS: CARVEDILOL 3.125 MG TABLET PO SCH (08:45)
[2020-02-17] MEDS: FINASTERIDE 5 MG TABLET PO SCH (08:45)
[2020-02-17 13:29] VITALS: BP 138/78
[2020-02-17] MEDS ORDERED: LEVO500T47 PO (14:00)
[2020-02-17] MEDS ORDERED: ACET325T26 PO (14:00)
[2020-02-17] MEDS ORDERED: HEMORRHOIDAL OINT, 28 GM (PREP H) RC PRN (23:50)
== END 2020-02-17 14:25 | disposition home or self-care (01) | DRG 854 ==
LOC: ED 19:26 → EDIP 19:46 → 4NE 20:38 → DCLOUNGE 02-17 14:24
PROVIDERS: ADMIT Family Medicine; ATTEND Hospitalist
PROC: 0FT44ZZ Resection of Gallbladder, Percutaneous Endoscopic Approach (ICD-10-PCS; principal; 2020-02-13 16:00)
DX: A41.9 Sepsis, unspecified organism (principal); D68.59 Other primary thrombophilia; K80.00 Calculus of gallbladder with acute cholecystitis without obstruction; N17.9 Acute kidney failure, unspecified; N30.00 Acute cystitis without hematuria; I48.20 Chronic atrial fibrillation, unspecified; E78.5 Hyperlipidemia, unspecified; Z96.642 Presence of left artificial hip joint; Z96.653 Presence of artificial knee joint, bilateral; H40.9 Unspecified glaucoma; M48.00 Spinal stenosis, site unspecified; I10 Essential (primary) hypertension; K59.00 Constipation, unspecified; K82.A1 Gangrene of gallbladder in cholecystitis; Z79.01 Long term (current) use of anticoagulants; I25.2 Old myocardial infarction; Z85.46 Personal history of malignant neoplasm of prostate; Z86.718 Personal history of other venous thrombosis and embolism; Z87.891 Personal history of nicotine dependence; Z90.49 Acquired absence of other specified parts of digestive tract; Z98.49 Cataract extraction status, unspecified eye; Z79.899 Other long term (current) drug therapy; Z95.0 Presence of cardiac pacemaker; Z88.8 Allergy status to other drugs, medicaments and biological substances
CPT/HCPCS: 36415; 80048; 80053; 81001; 82272; 83605; 85025; 85610; 85651; 85730; 86140; 88304; 93005; C1729; G0378; J0690; J1100; J1170; J2250; J2405; J2543; J2704; J3010; C1760; J0330; J2270; J7030

== ENCOUNTER 2021-01-17 22:09 | Inpatient (IN) | payer MEDICARE, OTHER ==
[~2021-01-17] VITALS: Ht 180.3 cm; Wt 99.2 kg
[~2021-01-17 22:09] MED LIST changes: +ACET325T26 PO; +APIX5TAB PO; +BRIN8DRO EACHEYE; -CYCL-259 PO; +CYCL10TA2 PO; +DORZ1DRO7 EACHEYE; -LATA2.5D3 EACHEYE; +LATA2.5D4 EACHEYE; +LEVO500T47 PO; -OXYC-302 PO; +OXYC1TAB14 PO; +SULF-23 PO; -SULF1TAB24 PO
[2021-01-17] MEDS ORDERED: PLEASE ENTER HEIGHT AND WEIGHT MC SCH (22:30)
[2021-01-17] MEDS ORDERED: SODIUM CHLORIDE 0.9% 1,000ML IVBOLUS ONE (22:30)
[2021-01-17] MEDS ORDERED: SODIUM CHLORIDE FLUSH 10ML SYR IVF PRN (23:00)
[2021-01-17] MEDS ORDERED: morphine SULFATE 10 MG/ML, 1ML IVPush PRN (23:30)
[2021-01-17] MEDS ORDERED: MELATONIN 5 MG TABLET PO PRN (23:30)
[2021-01-17] MEDS ORDERED: ONDANSETRON ODT 4 MG PO PRN (23:30)
[2021-01-17] MEDS ORDERED: ACETAMINOPHEN 325 MG TABLET PO PRN (23:30)
[2021-01-17] MEDS ORDERED: ONDANSETRON 2MG/ML, 2ML IVPush PRN (23:30)
[2021-01-17] MEDS ORDERED: ENALAPRILAT 1.25 MG/ML, 2ML IVPush PRN (23:30)
[2021-01-17] MEDS ORDERED: POLYETHYLENE GLYCOL 17 GM PACKET PO PRN (23:30)
[2021-01-17] MEDS ORDERED: DOCUSATE 100 MG CAPSULE PO PRN (23:30)
[2021-01-18 00:01] VITALS: BP 164/80
[2021-01-18] MEDS ORDERED: ASPI-963 PO (01:13)
[2021-01-18 04:54] LABS: BASOPHILS % (AUTO) 1 % (0-1); EOSINOPHILS % (AUTO) 2 % (1-7); LYMPHOCYTES % (AUTO) 12 % (22-44); MEAN CORPUSCULAR HEMOGLOBIN 31.3 pg (27.5-34.5); MEAN CORPUSCULAR HGB CONC 33.1 g/dL (33.2-36.2); MEAN PLATELET VOLUME 9.7 fL (7.4-10.4); MONOCYTES % (AUTO) 12 % (2-9); NEUTROPHILS % (AUTO) 74 % (42-75); PLATELET COUNT 116 x10^3/uL (130-400); RED BLOOD COUNT 3.98 x10^6/uL (4.38-5.82); RED CELL DISTRIBUTION WIDTH 15.9 % (9.4-14.8)
[2021-01-18 04:57] LABS: MD NO
[2021-01-18 04:59] LABS: ALBUMIN 2.6 g/dL (3.4-5.0); ANION GAP 6 mmol/L (5-15); CALCIUM 8.5 mg/dL (8.5-10.1); CHLORIDE 110 mmol/L (98-107)
[2021-01-18 05:04] LABS: ALANINE AMINOTRANSFERASE 116 U/L (12-78); ALKALINE PHOSPHATASE 307 U/L (45-117); BILIRUBIN,TOTAL 1.6 mg/dL (0.2-1.0); TOTAL PROTEIN 5.8 g/dL (6.4-8.2)
[2021-01-18 08:21] VITALS: BP 164/77
[2021-01-18] MEDS ORDERED: TAMSULOSIN 0.4 MG CAP.ER.24H PO SCH (09:00)
[2021-01-18] MEDS ORDERED: FINASTERIDE 5 MG TABLET PO SCH (09:00)
[2021-01-18] MEDS ORDERED: DORZOLAMIDE TIMOLOL EACHEYE SCH (09:00)
[2021-01-18] MEDS: SENNA/DOCUSATE TABLET PO SCH (09:00)
[2021-01-18] MEDS: Brinzolamide/Brimonid Tart (Simbrinza 1%-0.2% Eye Drops) EACHEYE SCH ×2 (09:00→20:49)
[2021-01-18] MEDS ORDERED: TAMS-11 PO (10:18)
[2021-01-18 13:07] VITALS: BP 143/77
[2021-01-18] MEDS ORDERED: GOLYTELY 4,000ML ORAL.SOL PO ONE (15:00)
[2021-01-18 15:26] LABS: BILIRUBIN, DIRECT 0.4 mg/dL (0.1-0.2)
[2021-01-18 15:30] LABS: BILIRUBIN,INDIRECT 0.5 mg/dL (0.0-2.0); BILIRUBIN,TOTAL 0.9 mg/dL (0.2-1.0)
[2021-01-18] MEDS: TIMOLOL OPHTH 0.5%, 5ML EACHEYE SCH ×2 (15:32→21:00)
[2021-01-18] MEDS: DORZOLAMIDE OPHTH 2%, 10ML EACHEYE SCH ×2 (15:32→21:00)
[2021-01-18 15:35] LABS: INTERNATIONAL NORMALIZED RATIO 1.02 (0.93-1.1); PROTHROMBIN TIME 10.9 Seconds (9.6-11.5)
[2021-01-18 19:03] VITALS: BP 190/81
[2021-01-18 19:31] VITALS: BP 182/83
[2021-01-18] MEDS: hydrALAzine 20 MG/ML, 1ML IVPush PRN (19:41)
[2021-01-18 20:39] VITALS: BP 158/79
[2021-01-18] MEDS: TAMSULOSIN 0.4 MG CAP.ER.24H PO SCH (20:48)
[2021-01-18] MEDS: ATORVASTATIN 20 MG TABLET PO SCH (20:48)
[2021-01-18] MEDS: FINASTERIDE 5 MG TABLET PO SCH (20:49)
[2021-01-18] MEDS ORDERED: LATANOPROST EACHEYE SCH (21:00)
[2021-01-18] MEDS: LATANOPROST OPHTH 0.005%, 2.5ML EACHEYE SCH (21:00)
[2021-01-19 00:58] VITALS: BP 162/79
[2021-01-19 06:40] LABS: BASOPHILS % (AUTO) 0 % (0-1); EOSINOPHILS % (AUTO) 2 % (1-7); LYMPHOCYTES % (AUTO) 16 % (22-44); MEAN CORPUSCULAR HEMOGLOBIN 31.4 pg (27.5-34.5); MEAN CORPUSCULAR HGB CONC 33.4 g/dL (33.2-36.2); MEAN PLATELET VOLUME 9.8 fL (7.4-10.4); MONOCYTES % (AUTO) 9 % (2-9); NEUTROPHILS % (AUTO) 72 % (42-75); PLATELET COUNT 123 x10^3/uL (130-400); RED BLOOD COUNT 4.01 x10^6/uL (4.38-5.82); RED CELL DISTRIBUTION WIDTH 15.9 % (9.4-14.8)
[2021-01-19 06:43] LABS: MD NO
[2021-01-19 07:03] LABS: ALBUMIN 2.6 g/dL (3.4-5.0); ANION GAP 8 mmol/L (5-15); CALCIUM 8.6 mg/dL (8.5-10.1); CHLORIDE 112 mmol/L (98-107)
[2021-01-19 07:07] LABS: ALANINE AMINOTRANSFERASE 92 U/L (12-78); ALKALINE PHOSPHATASE 276 U/L (45-117); BILIRUBIN,TOTAL 0.9 mg/dL (0.2-1.0)
[2021-01-19 07:13] VITALS: BP 163/68
[2021-01-19] MEDS: SENNA/DOCUSATE TABLET PO SCH (08:43)
[2021-01-19] MEDS: DORZOLAMIDE OPHTH 2%, 10ML EACHEYE SCH ×3 (08:45→21:00)
[2021-01-19] MEDS: TIMOLOL OPHTH 0.5%, 5ML EACHEYE SCH ×3 (08:46→21:00)
[2021-01-19] MEDS: Brinzolamide/Brimonid Tart (Simbrinza 1%-0.2% Eye Drops) EACHEYE SCH ×2 (08:47→21:00)
[2021-01-19] MEDS ORDERED: CHLORHEXIDINE 15 ML UDC ONE (09:45)
[2021-01-19] MEDS ORDERED: CHLORHEXIDINE 15 ML UDC PO ONE (10:00)
[2021-01-19] MEDS ORDERED: PROPOFOL 10 MG/ML, 20ML ONE ×4 (10:55→11:19)
[2021-01-19] MEDS ORDERED: hydrALAzine 20 MG/ML, 1ML ONE (12:40)
[2021-01-19] MEDS: hydrALAzine 20 MG/ML, 1ML IVPush PRN (12:40)
[2021-01-19 19:29] VITALS: BP 155/67
[2021-01-19] MEDS: ATORVASTATIN 20 MG TABLET PO SCH (21:00)
[2021-01-19] MEDS: LATANOPROST OPHTH 0.005%, 2.5ML EACHEYE SCH (21:00)
[2021-01-19] MEDS: FINASTERIDE 5 MG TABLET PO SCH (21:53)
[2021-01-19] MEDS: TAMSULOSIN 0.4 MG CAP.ER.24H PO SCH (21:56)
[2021-01-19] MEDS ORDERED: OMNIPAQUE 350 MG/ML, 100ML BOTTLE ONE (23:00)
[2021-01-20 00:45] VITALS: BP 153/63
[2021-01-20] MEDS: HYDROcodone/APAP 5/325 TABLET PO PRN ×2 (05:23→21:41)
[2021-01-20 08:32] VITALS: BP 110/63
[2021-01-20] MEDS: SENNA/DOCUSATE TABLET PO SCH (08:41)
[2021-01-20] MEDS: TIMOLOL OPHTH 0.5%, 5ML EACHEYE SCH ×3 (08:45→20:04)
[2021-01-20] MEDS: DORZOLAMIDE OPHTH 2%, 10ML EACHEYE SCH ×3 (08:45→20:03)
[2021-01-20] MEDS: Brinzolamide/Brimonid Tart (Simbrinza 1%-0.2% Eye Drops) EACHEYE SCH ×2 (08:46→20:04)
[2021-01-20 13:49] VITALS: BP 145/62
[2021-01-20] MEDS ORDERED: MAGNESIUM CITRATE 300ML ORAL SOL ONE (15:24)
[2021-01-20] MEDS ORDERED: MAGNESIUM CITRATE 300ML ORAL SOL PO ONE (18:00)
[2021-01-20 18:35] VITALS: BP 169/83
[2021-01-20] MEDS: LATANOPROST OPHTH 0.005%, 2.5ML EACHEYE SCH (20:04)
[2021-01-20] MEDS: FINASTERIDE 5 MG TABLET PO SCH (20:06)
[2021-01-20] MEDS: ATORVASTATIN 20 MG TABLET PO SCH (20:07)
[2021-01-20] MEDS: TAMSULOSIN 0.4 MG CAP.ER.24H PO SCH (20:07)
[2021-01-21 00:58] VITALS: BP 159/76
[2021-01-21 07:24] VITALS: BP 154/79
[2021-01-21] MEDS: SENNA/DOCUSATE TABLET PO SCH (07:33)
[2021-01-21] MEDS: Brinzolamide/Brimonid Tart (Simbrinza 1%-0.2% Eye Drops) EACHEYE SCH ×2 (08:48→20:30)
[2021-01-21] MEDS: TIMOLOL OPHTH 0.5%, 5ML EACHEYE SCH ×3 (08:49→20:31)
[2021-01-21] MEDS: DORZOLAMIDE OPHTH 2%, 10ML EACHEYE SCH ×3 (08:50→20:28)
[2021-01-21] MEDS ORDERED: CHLORHEXIDINE 15 ML UDC ONE (11:22)
[2021-01-21] MEDS ORDERED: PROPOFOL 50 ML ONE (11:38)
[2021-01-21] MEDS ORDERED: FENTANYL PF 100 MCG/2ML IV PRN (12:00)
[2021-01-21 14:13] VITALS: BP 138/78
[2021-01-21 18:32] VITALS: BP 163/75
[2021-01-21] MEDS: TAMSULOSIN 0.4 MG CAP.ER.24H PO SCH (20:27)
[2021-01-21] MEDS: ATORVASTATIN 20 MG TABLET PO SCH (20:27)
[2021-01-21] MEDS: FINASTERIDE 5 MG TABLET PO SCH (20:32)
[2021-01-21] MEDS ORDERED: BIMATOPROST OP SCH (21:00)
[2021-01-21] MEDS: HYDROcodone/APAP 5/325 TABLET PO PRN (21:13)
[2021-01-21] MEDS ORDERED: BIMATOPROST 0.01% EACHEYE SCH (21:21)
[2021-01-22 00:58] VITALS: BP 155/69
[2021-01-22 07:27] VITALS: BP 167/69
[2021-01-22] MEDS: TIMOLOL OPHTH 0.5%, 5ML EACHEYE SCH ×2 (08:47→15:54)
[2021-01-22] MEDS: DORZOLAMIDE OPHTH 2%, 10ML EACHEYE SCH ×2 (08:48→15:54)
[2021-01-22] MEDS: Brinzolamide/Brimonid Tart (Simbrinza 1%-0.2% Eye Drops) EACHEYE SCH (08:48)
[2021-01-22] MEDS: SENNA/DOCUSATE TABLET PO SCH (08:49)
[2021-01-22] MEDS: HYDROcodone/APAP 5/325 TABLET PO PRN (10:54)
[2021-01-22] MEDS ORDERED: HYDR-2214 PO (11:43)
[2021-01-22 12:32] VITALS: BP 128/58
== END 2021-01-22 17:46 | disposition home or self-care (01) | DRG 375 ==
LOC: ED 22:43 → EDIP 22:50 → 3N 23:51
PROVIDERS: ADMIT Hospitalist; ATTEND Hospitalist
PROC: 0DBN8ZZ Excision of Sigmoid Colon, Via Natural or Artificial Opening Endoscopic (ICD-10-PCS; 2021-01-19)
PROC: 0DBP8ZZ Excision of Rectum, Via Natural or Artificial Opening Endoscopic (ICD-10-PCS; 2021-01-19)
PROC: 0DBM8ZZ Excision of Descending Colon, Via Natural or Artificial Opening Endoscopic (ICD-10-PCS; 2021-01-19)
PROC: 0DBH8ZZ Excision of Cecum, Via Natural or Artificial Opening Endoscopic (ICD-10-PCS; 2021-01-19)
PROC: 0DJ08ZZ Inspection of Upper Intestinal Tract, Via Natural or Artificial Opening Endoscopic (ICD-10-PCS; principal; 2021-01-19 11:00)
PROC: 0DBK8ZZ Excision of Ascending Colon, Via Natural or Artificial Opening Endoscopic (ICD-10-PCS; 2021-01-19 11:00)
PROC: 0DJ08ZZ Inspection of Upper Intestinal Tract, Via Natural or Artificial Opening Endoscopic (ICD-10-PCS; 2021-01-21)
PROC: 0DJD8ZZ Inspection of Lower Intestinal Tract, Via Natural or Artificial Opening Endoscopic (ICD-10-PCS; 2021-01-21)
DX: C18.7 Malignant neoplasm of sigmoid colon (principal); I48.20 Chronic atrial fibrillation, unspecified; K44.9 Diaphragmatic hernia without obstruction or gangrene; E66.9 Obesity, unspecified; E78.5 Hyperlipidemia, unspecified; H90.5 Unspecified sensorineural hearing loss; Z66 Do not resuscitate; I10 Essential (primary) hypertension; I25.10 Atherosclerotic heart disease of native coronary artery without angina pectoris; Z20.822 Contact with and (suspected) exposure to COVID-19; I25.2 Old myocardial infarction; Z82.49 Family history of ischemic heart disease and other diseases of the circulatory system; Z85.46 Personal history of malignant neoplasm of prostate; Z87.891 Personal history of nicotine dependence; Z95.0 Presence of cardiac pacemaker; Z95.1 Presence of aortocoronary bypass graft; Z90.49 Acquired absence of other specified parts of digestive tract; Z88.8 Allergy status to other drugs, medicaments and biological substances; Z68.30 Body mass index [BMI] 30.0-30.9, adult
CPT/HCPCS: 36415; 71260; 74177; 80053; 80074; 82105; 82150; 82247; 82248; 82378; 83690; 83735; 85025; 85610; 86301; 87635; 88305; 88341; 88342; 93005; 93306; 93975; G0378; J2704; Q9967; A4648; J0360

== ENCOUNTER 2021-03-11 09:10 | Observation (INO) | payer OTHER ==
[2021-03-10 12:55] LABS: BASOPHILS % (AUTO) 1 % (0-1); EOSINOPHILS % (AUTO) 4 % (1-7); LYMPHOCYTES % (AUTO) 25 % (22-44); MEAN CORPUSCULAR HEMOGLOBIN 30.9 pg (27.5-34.5); MEAN CORPUSCULAR HGB CONC 33.6 g/dL (33.2-36.2); MEAN PLATELET VOLUME 9.1 fL (7.4-10.4); MONOCYTES % (AUTO) 8 % (2-9); NEUTROPHILS % (AUTO) 63 % (42-75); PLATELET COUNT 258 x10^3/uL (130-400); RED CELL DISTRIBUTION WIDTH 14.8 % (9.4-14.8)
[2021-03-10 13:07] LABS: CHLORIDE 110 mmol/L (98-107)
[2021-03-10 13:15] LABS: ALANINE AMINOTRANSFERASE 301 U/L (12-78); ALBUMIN 3.3 g/dL (3.4-5.0); ALKALINE PHOSPHATASE 676 U/L (45-117); ANION GAP 5 mmol/L (5-15); BILIRUBIN,TOTAL 0.7 mg/dL (0.2-1.0); CALCIUM 9.1 mg/dL (8.5-10.1); CREATININE 1.04 mg/dL (0.7-1.3); TOTAL PROTEIN 7.3 g/dL (6.4-8.2)
[~2021-03-11] VITALS: Ht 180.3 cm; Wt 94.1 kg
[~2021-03-11 09:10] MED LIST changes: +ASPI-963 PO; +HYDR-2214 PO
[2021-03-11 09:57] VITALS: BP 114/61
[2021-03-11] MEDS ORDERED: FENTANYL PF 250 MCG/5ML ONE (09:59)
[2021-03-11] MEDS ORDERED: LACTATED RINGERS 1,000 ML IV SCH (10:00)
[2021-03-11] MEDS ORDERED: CHLORHEXIDINE 15 ML UDC PO ONE (10:00)
[2021-03-11] MEDS ORDERED: EPINEPHRINE 1 MG/ML, 1ML ONE (10:37)
[2021-03-11] MEDS ORDERED: BUPIVACAINE/PF 0.5% ONE (10:37)
[2021-03-11 10:51] LABS: INTERNATIONAL NORMALIZED RATIO 1.03 (0.93-1.1)
[2021-03-11] MEDS ORDERED: HYDROmorphone 1 MG/ML, 1ML INJ IVPush PRN (11:00)
[2021-03-11] MEDS ORDERED: OXYcodone 5 MG/5 ML ORAL.SOL UDC PO PRN (11:00)
[2021-03-11] MEDS ORDERED: LABETALOL 5MG/ML, 20ML IV PRN (11:00)
[2021-03-11] MEDS ORDERED: FENTANYL PF 100 MCG/2ML IV PRN (11:00)
[2021-03-11] MEDS ORDERED: MEPERIDINE/PF 25MG/0.5ML IVPush PRN (11:00)
[2021-03-11] MEDS ORDERED: morphine SULFATE 10 MG/ML, 1ML IVPush PRN (11:00)
[2021-03-11] MEDS ORDERED: ACETAMINOPHEN 325 MG TABLET PO PRN (11:00)
[2021-03-11] MEDS ORDERED: ONDANSETRON 2MG/ML, 2ML IVPush PRN ×2 (11:00→15:00)
[2021-03-11] MEDS ORDERED: hydrALAzine 20 MG/ML, 1ML IV PRN (11:00)
[2021-03-11] MEDS ORDERED: NEOSTIGMINE 1 MG/ML, 10ML ONE (11:54)
[2021-03-11] MEDS ORDERED: ROCURONIUM 10MG/ML,5ML ONE (11:54)
[2021-03-11] MEDS ORDERED: GLYCOPYRROLATE 0.2MG/1ML, 5ML ONE (11:54)
[2021-03-11] MEDS ORDERED: PROPOFOL 10 MG/ML, 20ML ONE (11:54)
[2021-03-11] MEDS ORDERED: SUGAMMADEX 200 MG/2 ML IVPush ONE (12:07)
[2021-03-11] MEDS ORDERED: ACETAMINOPHEN 650 MG/20.3 ML UDC ONE (14:08)
[2021-03-11] MEDS ORDERED: ACETAMINOPHEN 650 MG/20.3 ML UDC PO ONE (14:30)
[2021-03-11] MEDS ORDERED: DIPHENHYDRAMINE 25 MG CAPSULE PO PRN (15:00)
[2021-03-11] MEDS ORDERED: DIPHENHYDRAMINE 50 MG/ML, 1ML IVPush PRN (15:00)
[2021-03-11] MEDS ORDERED: D5%-0.45NACL+KCL 20MEQ 1,000 ML IV SCH (15:00)
[2021-03-11 19:35] VITALS: BP 150/74
[2021-03-11] MEDS: SIMBRINZA OP SCH (20:35)
[2021-03-11] MEDS ORDERED: LATANOPROST OPHTH 0.005%, 2.5ML OP SCH (21:00)
[2021-03-11] MEDS ORDERED: TAMSULOSIN 0.4 MG CAP.ER.24H PO SCH (21:00)
[2021-03-11] MEDS: ACETAMINOPHEN 500 MG TABLET PO SCH (21:29)
[2021-03-11] MEDS: DORZOLAMIDE OPHTH 2%, 10ML OP SCH (21:29)
[2021-03-11] MEDS: TIMOLOL OPHTH 0.5%, 5ML OP SCH (21:32)
[2021-03-11] MEDS: OXYcodone IR 5MG TABLET PO PRN (21:36)
[2021-03-12 00:15] VITALS: BP 147/73
[2021-03-12] MEDS: OXYcodone IR 5MG TABLET PO PRN ×2 (00:39→03:26)
[2021-03-12 02:59] LABS: BASOPHILS % (AUTO) 1 % (0-1); EOSINOPHILS % (AUTO) 2 % (1-7); LYMPHOCYTES % (AUTO) 8 % (22-44); MEAN CORPUSCULAR HEMOGLOBIN 30.7 pg (27.5-34.5); MEAN CORPUSCULAR HGB CONC 33.4 g/dL (33.2-36.2); MEAN PLATELET VOLUME 9.2 fL (7.4-10.4); MONOCYTES % (AUTO) 9 % (2-9); NEUTROPHILS % (AUTO) 81 % (42-75); PLATELET COUNT 236 x10^3/uL (130-400); RED BLOOD COUNT 4.58 x10^6/uL (4.38-5.82); RED CELL DISTRIBUTION WIDTH 14.3 % (9.4-14.8)
[2021-03-12 03:15] LABS: ANION GAP 6 mmol/L (5-15); CALCIUM 8.8 mg/dL (8.5-10.1); CHLORIDE 109 mmol/L (98-107); CREATININE 1.24 mg/dL (0.7-1.3)
[2021-03-12] MEDS: ACETAMINOPHEN 500 MG TABLET PO SCH ×2 (03:25→08:48)
[2021-03-12 07:41] VITALS: BP 154/65
[2021-03-12] MEDS: TIMOLOL OPHTH 0.5%, 5ML OP SCH (08:49)
[2021-03-12] MEDS: DORZOLAMIDE OPHTH 2%, 10ML OP SCH (08:50)
[2021-03-12] MEDS ORDERED: ASPIRIN 81 MG TABLET CHEW PO SCH (09:00)
[2021-03-12] MEDS ORDERED: FINASTERIDE 5 MG TABLET PO SCH (09:00)
[2021-03-12] MEDS: SIMBRINZA OP SCH (09:00)
[2021-03-12] MEDS ORDERED: ENOXAPARIN 40 MG/0.4 ML SQ SCH (09:00)
[2021-03-12 13:07] LABS: BILIRUBIN, DIRECT 0.4 mg/dL (0.1-0.2)
[2021-03-12 13:12] LABS: BILIRUBIN,INDIRECT 0.5 mg/dL (0.0-2.0); BILIRUBIN,TOTAL 0.9 mg/dL (0.2-1.0); TOTAL PROTEIN 6.7 g/dL (6.4-8.2)
[2021-03-12] MEDS ORDERED: TAMSULOSIN 0.4 MG CAP.ER.24H PO SCH (21:00)
== END 2021-03-12 10:30 | disposition home or self-care (01) ==
LOC: OUT 09:10 → EDSTATUS 12:00 → 4NE 16:02 → OUT 21:37
PROVIDERS: ADMIT Surgery; ATTEND Surgery
DX: C18.7 Malignant neoplasm of sigmoid colon (principal); Z20.822 Contact with and (suspected) exposure to COVID-19; K62.1 Rectal polyp; I10 Essential (primary) hypertension; I25.10 Atherosclerotic heart disease of native coronary artery without angina pectoris; I48.91 Unspecified atrial fibrillation; Z95.0 Presence of cardiac pacemaker; Z79.899 Other long term (current) drug therapy
CPT/HCPCS: 36415; 45172; 80048; 80053; 80076; 82040; 85025; 85610; 88305; 96372; G0378; J0171; J1650; J2704; J2710; J3010; J7120; S0020; U0003; U0005

== ENCOUNTER 2021-03-17 08:46 | Inpatient (IN) | payer OTHER ==
[~2021-03-17] VITALS: Ht 180.3 cm; Wt 93.0 kg
[2021-03-17 09:28] VITALS: BP 115/65
[2021-03-17 09:53] LABS: BASOPHILS % (AUTO) 1 % (0-1); EOSINOPHILS % (AUTO) 3 % (1-7); LYMPHOCYTES % (AUTO) 14 % (22-44); MEAN CORPUSCULAR HEMOGLOBIN 30.4 pg (27.5-34.5); MEAN CORPUSCULAR HGB CONC 32.9 g/dL (33.2-36.2); MEAN PLATELET VOLUME 9.8 fL (7.4-10.4); MONOCYTES % (AUTO) 11 % (2-9); NEUTROPHILS % (AUTO) 72 % (42-75); PLATELET COUNT 229 x10^3/uL (130-400); RED CELL DISTRIBUTION WIDTH 15.2 % (9.4-14.8)
[2021-03-17 10:02] LABS: INTERNATIONAL NORMALIZED RATIO 1.03 (0.93-1.1)
[2021-03-17 10:03] LABS: ALANINE AMINOTRANSFERASE 118 U/L (12-78); ALBUMIN 2.7 g/dL (3.4-5.0); ANION GAP 7 mmol/L (5-15); CALCIUM 8.6 mg/dL (8.5-10.1); CHLORIDE 113 mmol/L (98-107)
[2021-03-17 10:05] LABS: ALKALINE PHOSPHATASE 467 U/L (45-117); BILIRUBIN,TOTAL 0.5 mg/dL (0.2-1.0); TOTAL PROTEIN 6.2 g/dL (6.4-8.2)
[2021-03-17] MEDS ORDERED: ASPIRIN 81 MG TABLET EC PO SCH (13:00)
[2021-03-17] MEDS ORDERED: FINASTERIDE 5 MG TABLET PO SCH (13:00)
[2021-03-17 13:30] VITALS: BP 127/57
[2021-03-17] MEDS ORDERED: ONDANSETRON 2MG/ML, 2ML IVPush PRN (13:30)
[2021-03-17] MEDS ORDERED: ACETAMINOPHEN 325 MG TABLET PO PRN (13:30)
[2021-03-17] MEDS: DORZOLAMIDE EACHEYE SCH ×3 (13:53→20:17)
[2021-03-17] MEDS: TIMOLOL EACHEYE SCH ×3 (13:53→20:17)
[2021-03-17 19:14] VITALS: BP 152/66
[2021-03-17] MEDS: TAMSULOSIN 0.4 MG CAP.ER.24H PO SCH (20:12)
[2021-03-17] MEDS: ASPIRIN 81 MG TABLET EC PO SCH (20:12)
[2021-03-17] MEDS: FINASTERIDE 5 MG TABLET PO SCH (20:14)
[2021-03-17] MEDS: TEMPLATE NON-FORMULARY MED. (Brinzolamide/Brimonid Tart (Simbrinza 1%-0.2% Eye Drops) 1 DR EACHEYE SCH (20:15)
[2021-03-17] MEDS: LATANOPROST OPHTH 0.005%, 2.5ML HOMEOPHTH SCH (20:19)
[2021-03-17] MEDS ORDERED: LATANOPROST OPHTH 0.005%, 2.5ML EACHEYE SCH (21:00)
[2021-03-18 00:50] VITALS: BP 143/60
[2021-03-18 06:22] VITALS: BP 128/67
[2021-03-18] MEDS ORDERED: EPINEPHRINE 1 MG/ML, 1ML ONE (06:47)
[2021-03-18] MEDS ORDERED: BUPIVACAINE/PF 0.5% ONE (06:47)
[2021-03-18] MEDS ORDERED: INDOCYANINE GREEN 25 MG VIAL ONE (06:47)
[2021-03-18] MEDS ORDERED: CHLORHEXIDINE 15 ML UDC PO ONE (07:00)
[2021-03-18] MEDS ORDERED: FENTANYL PF 250 MCG/5ML ONE (07:10)
[2021-03-18] MEDS ORDERED: MIDAZOLAM 1 MG/ML, 2ML ONE (07:10)
[2021-03-18] MEDS: TEMPLATE NON-FORMULARY MED. (Brinzolamide/Brimonid Tart (Simbrinza 1%-0.2% Eye Drops) 1 DR EACHEYE SCH ×2 (08:34→21:32)
[2021-03-18] MEDS: DORZOLAMIDE EACHEYE SCH ×3 (08:34→21:32)
[2021-03-18] MEDS: TIMOLOL EACHEYE SCH ×3 (08:34→21:32)
[2021-03-18] MEDS ORDERED: FENTANYL PF 100 MCG/2ML ONE ×2 (11:27→11:59)
[2021-03-18] MEDS ORDERED: OXYcodone 5 MG/5 ML ORAL.SOL UDC ONE ×2 (11:27→11:39)
[2021-03-18] MEDS ORDERED: METOCLOPRAMIDE 5 MG/ML, 2ML IV PRN (11:30)
[2021-03-18] MEDS ORDERED: OXYcodone 5 MG/5 ML ORAL.SOL UDC PO PRN (11:30)
[2021-03-18] MEDS ORDERED: PROMETHAZINE 25 MG/ML, 1ML IV PRN (11:30)
[2021-03-18] MEDS ORDERED: MEPERIDINE/PF 25MG/0.5ML IVPush PRN (11:30)
[2021-03-18] MEDS ORDERED: LABETALOL 5MG/ML, 20ML IV PRN (11:30)
[2021-03-18] MEDS ORDERED: hydrALAzine 20 MG/ML, 1ML IV PRN (11:30)
[2021-03-18] MEDS ORDERED: ONDANSETRON 2MG/ML, 2ML IVPush PRN (11:30)
[2021-03-18] MEDS ORDERED: DIAZEPAM 5 MG/ML, 2ML IV PRN ×2 (11:30)
[2021-03-18] MEDS ORDERED: KETOROLAC 30 MG/1 ML IV PRN (11:30)
[2021-03-18] MEDS ORDERED: ALBUTEROL SULFATE 2.5 MG/3 ML NPPB PRN (11:30)
[2021-03-18] MEDS: FENTANYL PF 100 MCG/2ML IV PRN ×5 (11:34→12:33)
[2021-03-18] MEDS ORDERED: HYDROmorphone 1 MG/ML, 1ML INJ ONE ×2 (11:39→12:05)
[2021-03-18] MEDS ORDERED: hydrALAzine 20 MG/ML, 1ML ONE (11:49)
[2021-03-18] MEDS: HYDROmorphone 1 MG/ML, 1ML INJ IV PRN ×3 (11:55→12:36)
[2021-03-18 13:25] VITALS: BP 118/67
[2021-03-18] MEDS ORDERED: DIPHENHYDRAMINE 50 MG/ML, 1ML IVPush PRN (13:30)
[2021-03-18] MEDS ORDERED: ONDANSETRON 2MG/ML, 2ML IV PRN (13:30)
[2021-03-18] MEDS ORDERED: DIPHENHYDRAMINE 25 MG CAPSULE PO PRN (14:00)
[2021-03-18] MEDS: OXYcodone IR 5MG TABLET PO PRN ×3 (15:53→21:37)
[2021-03-18] MEDS: ACETAMINOPHEN 500 MG TABLET PO SCH ×2 (15:53→21:31)
[2021-03-18] MEDS: D5%-0.45NACL+KCL 20MEQ 1,000 ML IV SCH (18:34)
[2021-03-18 20:08] VITALS: BP 128/68
[2021-03-18] MEDS: LATANOPROST OPHTH 0.005%, 2.5ML HOMEOPHTH SCH (21:00)
[2021-03-18] MEDS: FINASTERIDE 5 MG TABLET PO SCH (21:31)
[2021-03-18] MEDS: ASPIRIN 81 MG TABLET EC PO SCH (21:31)
[2021-03-18] MEDS: TAMSULOSIN 0.4 MG CAP.ER.24H PO SCH (21:31)
[2021-03-19 00:13] VITALS: BP 122/69
[2021-03-19] MEDS: ACETAMINOPHEN 500 MG TABLET PO SCH ×4 (02:17→20:14)
[2021-03-19] MEDS: OXYcodone IR 5MG TABLET PO PRN ×4 (02:17→20:15)
[2021-03-19 03:28] LABS: BASOPHILS % (AUTO) 1 % (0-1); EOSINOPHILS % (AUTO) 1 % (1-7); LYMPHOCYTES % (AUTO) 12 % (22-44); MEAN CORPUSCULAR HEMOGLOBIN 30.5 pg (27.5-34.5); MEAN CORPUSCULAR HGB CONC 33.1 g/dL (33.2-36.2); MONOCYTES % (AUTO) 9 % (2-9); NEUTROPHILS % (AUTO) 78 % (42-75); PLATELET COUNT 255 x10^3/uL (130-400); RED BLOOD COUNT 4.48 x10^6/uL (4.38-5.82)
[2021-03-19 03:39] LABS: ALBUMIN 2.3 g/dL (3.4-5.0); ANION GAP 5 mmol/L (5-15); CALCIUM 8.2 mg/dL (8.5-10.1); CHLORIDE 110 mmol/L (98-107); CREATININE 1.43 mg/dL (0.7-1.3)
[2021-03-19 04:15] VITALS: BP 127/63
[2021-03-19] MEDS: D5%-0.45NACL+KCL 20MEQ 1,000 ML IV SCH ×2 (04:18→15:03)
[2021-03-19] MEDS: TIMOLOL EACHEYE SCH ×3 (07:30→20:16)
[2021-03-19] MEDS: DORZOLAMIDE EACHEYE SCH ×3 (07:30→20:16)
[2021-03-19] MEDS: ENOXAPARIN 40 MG/0.4 ML SQ SCH (07:30)
[2021-03-19] MEDS: TEMPLATE NON-FORMULARY MED. (Brinzolamide/Brimonid Tart (Simbrinza 1%-0.2% Eye Drops) 1 DR EACHEYE SCH ×2 (07:31→20:17)
[2021-03-19 07:38] VITALS: BP 116/54
[2021-03-19 14:25] VITALS: BP 128/66
[2021-03-19] MEDS ORDERED: SODIUM CHLORIDE 0.9%, 500ML IVBOLUS ONE (16:30)
[2021-03-19 20:06] VITALS: BP 157/64
[2021-03-19] MEDS: ASPIRIN 81 MG TABLET EC PO SCH (20:12)
[2021-03-19] MEDS: TAMSULOSIN 0.4 MG CAP.ER.24H PO SCH (20:14)
[2021-03-19] MEDS: FINASTERIDE 5 MG TABLET PO SCH (20:15)
[2021-03-19] MEDS: LATANOPROST OPHTH 0.005%, 2.5ML HOMEOPHTH SCH (20:19)
[2021-03-20 01:28] VITALS: BP 155/67
[2021-03-20] MEDS: OXYcodone IR 5MG TABLET PO PRN ×2 (01:51→14:05)
[2021-03-20] MEDS: ACETAMINOPHEN 500 MG TABLET PO SCH ×3 (01:51→14:05)
[2021-03-20 03:21] LABS: BASOPHILS % (AUTO) 0 % (0-1); EOSINOPHILS % (AUTO) 3 % (1-7); LYMPHOCYTES % (AUTO) 16 % (22-44); MEAN CORPUSCULAR HEMOGLOBIN 30.2 pg (27.5-34.5); MEAN CORPUSCULAR HGB CONC 33.3 g/dL (33.2-36.2); MEAN PLATELET VOLUME 10.1 fL (7.4-10.4); MONOCYTES % (AUTO) 11 % (2-9); NEUTROPHILS % (AUTO) 70 % (42-75); PLATELET COUNT 228 x10^3/uL (130-400); RED BLOOD COUNT 4.05 x10^6/uL (4.38-5.82); RED CELL DISTRIBUTION WIDTH 15.1 % (9.4-14.8)
[2021-03-20 03:33] LABS: ALBUMIN 2.2 g/dL (3.4-5.0); ANION GAP 5 mmol/L (5-15); CALCIUM 7.8 mg/dL (8.5-10.1); CHLORIDE 111 mmol/L (98-107); CREATININE 1.01 mg/dL (0.7-1.3)
[2021-03-20] MEDS: D5%-0.45NACL+KCL 20MEQ 1,000 ML IV SCH (07:19)
[2021-03-20] MEDS: DORZOLAMIDE EACHEYE SCH ×2 (07:29→14:07)
[2021-03-20] MEDS: TIMOLOL EACHEYE SCH ×2 (07:29→14:07)
[2021-03-20] MEDS: ENOXAPARIN 40 MG/0.4 ML SQ SCH (07:30)
[2021-03-20] MEDS: TEMPLATE NON-FORMULARY MED. (Brinzolamide/Brimonid Tart (Simbrinza 1%-0.2% Eye Drops) 1 DR EACHEYE SCH (07:30)
[2021-03-20 07:45] VITALS: BP 154/69
[2021-03-20 13:18] VITALS: BP 133/70
[2021-03-20] MEDS ORDERED: OXYC5TAB2 PO (15:03)
[2021-03-20] MEDS ORDERED: ACET325C6 PO (15:04)
[2021-03-20] MEDS ORDERED: ENOX40SY5 SQ (15:04)
== END 2021-03-20 16:00 | DRG 331 ==
LOC: 4NE 08:46
PROVIDERS: ADMIT Surgery; ATTEND Surgery
PROC: 8E0W4CZ Robotic Assisted Procedure of Trunk Region, Percutaneous Endoscopic Approach (ICD-10-PCS; 2021-03-18)
PROC: 0DTN4ZZ Resection of Sigmoid Colon, Percutaneous Endoscopic Approach (ICD-10-PCS; principal; 2021-03-18 07:30)
DX: C18.7 Malignant neoplasm of sigmoid colon (principal); Z20.822 Contact with and (suspected) exposure to COVID-19; Z88.8 Allergy status to other drugs, medicaments and biological substances
CPT/HCPCS: 36415; 80048; 80053; 82040; 85025; 85610; 86140; 88305; 88309; 93005; C1729; G0378; J0171; J1170; J1650; J2250; J3010; U0005; J0360; J3480; J7040; U0003